=== PATIENT | male | born 1945 | race African-American/Black ===

== ENCOUNTER 2018-01-18 11:56 | Inpatient (IN) | payer MEDICARE, OTHER ==
[~2018-01-18] VITALS: Ht 167.6 cm; Wt 64.9 kg
[~2018-01-18 11:56] MED LIST: ASPI-1159 PO; ATOR20TA65 PO; CETI10CA8 PO; CHOL200074 MT; DOCU250C69 PO; FINA5TAB11 PO; FOLI-43 PO; HYDR12.529 PO; SENN-169 PO; TAMS0.4C31 PO
[2018-01-18 12:47] LABS: BASOPHILS % 0.7 % (0.0-2.0); EOSINOPHILS % 0.3 % (0.0-5.0); HEMATOCRIT. 39.8 % (42.0-52.0); HEMOGLOBIN. 13.2 g/dL (14.0-18.0); MEAN CORPUSCULAR HEMOGLOBIN 29.9 pg (28.0-32.0); MEAN PLATELET VOLUME 7.3 fl (7.4-10.4); MONOCYTES % 7.5 % (2.0-8.0); NEUTROPHILS % 72.5 % (40.0-76.0); PLATELET 214 x1000/uL (130-400); RED BLOOD CELL COUNT 4.43 mill/uL (4.7-6.1)
[2018-01-18 12:52] LABS: CHLORIDE 102 mEq/L (98-107)
[2018-01-18 12:53] LABS: INR 1.3; PROTHROMBIN TIME 13.4 sec (9.4-11.6)
[2018-01-18 13:24] LABS: CLARITY URINE CLEAR (CLEAR); COLOR URINE DARK YELLOW (YELLOW); KETONES URINE 1+ (NEGATIVE); LEUKOCYTE ESTERASE URINE NEGATIVE (NEGATIVE); NITRITE URINE NEGATIVE (NEGATIVE); OCCULT BLOOD URINE NEGATIVE (NEGATIVE); PH URINE 5.5 (4.5-8.0); PROTEIN URINE NEGATIVE (NEGATIVE); SPECIFIC GRAVITY URINE 1.027 (1.005-1.030)
[2018-01-18 15:00] VITALS: BP 100/52
[2018-01-18 16:00] VITALS: BP 100/52
[2018-01-18] MEDS ORDERED: DOCUSATE SODIUM 100MG CAPSULE PO PRN (17:15)
[2018-01-18] MEDS ORDERED: LORAZEPAM 2MG/ML CPJ IV PRN (17:15)
[2018-01-18] MEDS ORDERED: ACETAMINOPHEN 325MG TABLET PO PRN (17:15)
[2018-01-18] MEDS ORDERED: ONDANSETRON HCL 4MG/2ML VIAL IV PRN (17:15)
[2018-01-18] MEDS: ENOXAPARIN 40MG/0.4ML SYR SUBCUT SCH (18:00)
[2018-01-18] MEDS ORDERED: POTA-79 MT (18:07)
[2018-01-18] MEDS ORDERED: HYDR-4001 MT (18:07)
[2018-01-18] MEDS ORDERED: CLON0.1T MT (18:07)
[2018-01-18] MEDS ORDERED: XAR15 MT (18:07)
[2018-01-18] MEDS: MORPHINE SULFATE 4 MG/ML CPJ (NOT FOR IM USE) IV PRN (18:52)
[2018-01-18] MEDS: PANTOPRAZOLE SODIUM 40 MG/VIAL IV SCH (18:52)
[2018-01-18] MEDS: DEXT 5%/0.45% NACL 1000ML 1,000 ML IV SCH (18:52)
[2018-01-18 20:00] VITALS: BP 130/100
[2018-01-19] VITALS (7 sets, daily range): BP systolic 138–176; BP diastolic 97–123
[2018-01-19] MEDS: PANTOPRAZOLE SODIUM 40 MG/VIAL IV SCH (08:37)
[2018-01-19] MEDS: MORPHINE SULFATE 4 MG/ML CPJ (NOT FOR IM USE) IV PRN ×2 (08:39→19:05)
[2018-01-19 09:57] LABS: BASOPHILS % 0.6 % (0.0-2.0); EOSINOPHILS % 0.1 % (0.0-5.0); HEMOGLOBIN. 12.9 g/dL (14.0-18.0); LYMPHOCYTES % 13.4 % (20.0-50.0); MEAN CORPUSCULAR HEMOGLOBIN 30.2 pg (28.0-32.0); MEAN CORPUSCULAR VOLUME 88.6 fL (80.0-94.0); MEAN PLATELET VOLUME 7.8 fl (7.4-10.4); MONOCYTES % 6.9 % (2.0-8.0); PLATELET 214 x1000/uL (130-400); RED BLOOD CELL COUNT 4.29 mill/uL (4.7-6.1); RED CELL DISTRIBUTION WIDTH 14.1 % (11.6-14.6)
[2018-01-19 10:00] LABS: INR 1.2; PROTHROMBIN TIME 12.7 sec (9.4-11.6)
[2018-01-19 10:24] LABS: CHLORIDE 103 mEq/L (98-107)
[2018-01-19 10:34] LABS: PHOSPHORUS 2.4 mg/dL (2.5-4.9)
[2018-01-19] MEDS: ENOXAPARIN 40MG/0.4ML SYR SUBCUT SCH (17:22)
[2018-01-19] MEDS: DEXT 5%/0.45% NACL 1000ML 1,000 ML IV SCH (17:23)
[2018-01-19] MEDS ORDERED: CLONIDINE 0.1MG TABLET PO PRN (18:45)
[2018-01-20] VITALS: BP 137/104
[2018-01-20 04:00] VITALS: BP 152/110
[2018-01-20] MEDS: PANTOPRAZOLE SODIUM 40 MG/VIAL IV SCH (09:51)
[2018-01-20] MEDS: PREDNISONE 20MG TABLET PO SCH (09:52)
[2018-01-20 12:00] VITALS: BP 146/110
[2018-01-20] MEDS ORDERED: LIDOCAINE HCL 1% 20ML VIAL (Pyxis) INJ ONE (15:35)
[2018-01-20] MEDS ORDERED: ETOMIDATE 2MG/ML 10ML VIAL IV ONE (15:35)
[2018-01-20] MEDS ORDERED: PROPOFOL 200MG/20ML VIAL IV ONE (15:35)
[2018-01-20] MEDS ORDERED: MIDAZOLAM HCL 2 MG/2 ML VIAL ONE (15:37)
[2018-01-20] MEDS: DEXT 5%/0.45% NACL 1000ML 1,000 ML IV SCH (18:00)
[2018-01-20] MEDS: ENOXAPARIN 40MG/0.4ML SYR SUBCUT SCH (18:03)
[2018-01-20 20:00] VITALS: BP 137/99
[2018-01-21] VITALS: BP 100/78
[2018-01-21 04:00] VITALS: BP 101/74
[2018-01-21] MEDS: DEXT 5%/0.45% NACL 1000ML 1,000 ML IV SCH (06:19)
[2018-01-21 07:54] LABS: HEMATOCRIT. 42.2 % (42.0-52.0); HEMOGLOBIN. 14.3 g/dL (14.0-18.0); MEAN CORPUSCULAR HEMOGLOBIN 30.1 pg (28.0-32.0); MEAN CORPUSCULAR VOLUME 88.8 fL (80.0-94.0); MEAN PLATELET VOLUME 7.7 fl (7.4-10.4); PLATELET 223 x1000/uL (130-400); RED BLOOD CELL COUNT 4.75 mill/uL (4.7-6.1); RED CELL DISTRIBUTION WIDTH 14.1 % (11.6-14.6)
[2018-01-21 07:55] LABS: CHLORIDE 98 mEq/L (98-107)
[2018-01-21 08:07] LABS: PHOSPHORUS 2.2 mg/dL (2.5-4.9)
[2018-01-21] MEDS: PANTOPRAZOLE SODIUM 40 MG/VIAL IV SCH (08:36)
[2018-01-21] MEDS: PREDNISONE 20MG TABLET PO SCH (08:36)
[2018-01-21] MEDS ORDERED: POTASSIUM CHLORIDE 20MEQ TABLET SR PO NR (10:30)
[2018-01-21 15:38] VITALS: BP 112/69
[2018-01-21 22:04] LABS: PLATELET ESTIMATE NORMAL
== END 2018-01-21 16:15 | DRG 391 ==
LOC: ER 12:02 → 6EST 13:07 → ENRESERV 13:53
PROVIDERS: ADMIT Internal Medicine Nephrology; ATTEND Internal Medicine Nephrology
PROC: 0DH64UZ Insertion of Feeding Device into Stomach, Percutaneous Endoscopic Approach (ICD-10-PCS; principal; 2018-01-20 14:00)
DX: R13.12 Dysphagia, oropharyngeal phase (principal); E43 Unspecified severe protein-calorie malnutrition; C79.31 Secondary malignant neoplasm of brain; C34.90 Malignant neoplasm of unspecified part of unspecified bronchus or lung; R62.7 Adult failure to thrive; I10 Essential (primary) hypertension; E78.00 Pure hypercholesterolemia, unspecified; E78.5 Hyperlipidemia, unspecified; E83.39 Other disorders of phosphorus metabolism; I25.10 Atherosclerotic heart disease of native coronary artery without angina pectoris; N40.0 Benign prostatic hyperplasia without lower urinary tract symptoms; Z86.711 Personal history of pulmonary embolism; Z87.891 Personal history of nicotine dependence; Z92.21 Personal history of antineoplastic chemotherapy; Z92.3 Personal history of irradiation; Z79.82 Long term (current) use of aspirin; Z79.899 Other long term (current) drug therapy; Z68.23 Body mass index [BMI] 23.0-23.9, adult
CPT/HCPCS: 36415; 80048; 80053; 80076; 81003; 83735; 84100; 84134; 85025; 85610; 85730; 92610; 97162; 99285; C1893; C9113; J1650; J2250; J2270; J2405; J2704; J3490; J7512